=== PATIENT | male | born 1975 | race African-American/Black ===

== ENCOUNTER 2021-02-12 23:26 | Inpatient (IN) | payer OTHER, SELFPAY ==
[2021-02-13 00:20] VITALS: BMI 46.3
[2021-02-13] MEDS ORDERED: Acetaminophen 650 MG Suppository PR PRN (01:00)
[2021-02-13] MEDS ORDERED: Acetaminophen 325 MG TAB PO PRN (01:00)
[2021-02-13] MEDS ORDERED: Senokot S 8.6-50 MG TAB PO PRN (01:00)
[2021-02-13] MEDS ORDERED: Dextrose 5% in Water 1,000 ML IV PRN (01:01)
[2021-02-13] MEDS ORDERED: HumaLOG 300 UNITS/3 ML VIAL SC PRN ×2 (01:01)
[2021-02-13] MEDS ORDERED: Dextrose 50% Abboject 50 ML SYRINGE SLOW IVP PRN (01:01)
[2021-02-13] MEDS: traMADol HCl 50 MG TAB PO PRN ×3 (01:36→22:14)
[2021-02-13] MEDS ORDERED: VANCOMYCIN 1.25 GM/250 ML BAG 1.25 GM in Premix Bag 1 BAG IVPB SCH (03:00)
[2021-02-13 03:01] LABS: #Eosinphils 0.1 thou/uL (0.0-0.7); #Neutrophils 6.9 thou/uL (1.40-6.50); %Basophils 0.4 % (0.0-1.0); %Eosinophils 0.7 % (0.0-10.0); %Lymphocytes 20.2 % (21.0-51.0); %Monocytes 9.9 % (0.0-10.0); %Neutrophils 68.8 % (42.0-75.0); Hemoglobin 12.5 g/dL (14.0-18.0); Mean Corpuscular HGB CONC 32.6 g/dL (32.0-36.0); Mean Corpuscular Hemoglobin 30.4 pg (27.0-31.0); Mean Corpuscular Volume 93.4 fL (78.0-98.0); Mean Platelet Volume 6.9 fL (7.4-10.4); Platelet Count 291 thou/uL (130-400); RBC Distribution Width 12.8 % (11.5-14.5)
[2021-02-13 03:41] LABS: Lactic Acid 2.4 mmol/L (0.5-2.2)
[2021-02-13 03:46] LABS: Anion Gap 18 mmol/L (10-20); BUN (Urea Nitrogen) 15 mg/dL (8.9-20.6); Calc. Creatinine Clearance 183 mL/min (70-130); Calcium 9.4 mg/dL (7.8-10.44); Carbon Dioxide 23 mmol/L (22-29); Chloride 100 mmol/L (98-107); Glucose 180 mg/dL (70-105); Magnesium 1.8 mg/dL (1.6-2.6); Potassium 3.7 mmol/L (3.5-5.1); Sodium 137 mmol/L (136-145)
[2021-02-13] MEDS: Atorvastatin Calcium 20 MG TAB PO SCH (08:02)
[2021-02-13] MEDS: Metoprolol Tartrate 100 MG TAB PO SCH ×2 (08:02→20:28)
[2021-02-13] MEDS ORDERED: FLU VACC QS2020-21(6MOS UP)/PF 60 MCG/0.5 ML SYRINGE IM ONE (09:00)
[2021-02-13] MEDS ORDERED: Famotidine 20 MG TAB PO SCH (09:00)
[2021-02-13] MEDS ORDERED: Lidocaine 1% (PF) 30 ML VIAL ONE (11:25)
[2021-02-13] MEDS ORDERED: Lidocaine 1% (PF) 30 ML VIAL SC SCH (11:30)
[2021-02-13 13:19] LABS: Synovial Fluid, Protein 5.1 g/dL (Not Available); Synovial Fluid, Uric Acid 11.4 mg/dL (Not Available)
[2021-02-13 13:23] LABS: BF Color Yellow; Body Fluid Source Synovial Fluid; Clarity Cloudy/Turbid (Clear); RBC Count-Automated (BF) 2362 /cu.mm; Tube # EDTA; WBC/Nucleated-Auto (BF) 38040 uL
[2021-02-13 13:36] LABS: BF Segmented Neutrophils 57 %; Cell Count Non Hematic 43 %
[2021-02-13] MEDS: VANCOMYCIN 2 GRAM/400 ML BAG 2 GM in Premix Bag 1 BAG IVPB SCH (14:46)
[2021-02-13] MEDS: cefTRIAXone\\ROCEPHIN 1 GM in Sodium Chloride 0.9% 100 ML IVPB SCH (20:29)
[2021-02-14] MEDS: VANCOMYCIN 2 GRAM/400 ML BAG 2 GM in Premix Bag 1 BAG IVPB SCH ×2 (02:38→14:35)
[2021-02-14] MEDS: traMADol HCl 50 MG TAB PO PRN ×3 (06:06→14:31)
[2021-02-14] MEDS: Atorvastatin Calcium 20 MG TAB PO SCH (09:27)
[2021-02-14] MEDS: Metoprolol Tartrate 100 MG TAB PO SCH ×2 (09:27→20:45)
[2021-02-14 14:10] LABS: Vancomycin, Trough 10.6 ug/mL
[2021-02-14] MEDS ORDERED: Allopurinol 300 MG TAB PO SCH (16:30)
[2021-02-14] MEDS ORDERED: Ketorolac Tromethamine 30 MG/ML VIAL IVP SCH (20:15)
[2021-02-14] MEDS: cefTRIAXone\\ROCEPHIN 1 GM in Sodium Chloride 0.9% 100 ML IVPB SCH (20:45)
[2021-02-14] MEDS ORDERED: metFORMIN 500 MG TAB PO SCH (21:00)
[2021-02-14] MEDS ORDERED: Vancomycin 1.5 GRAM/300 ML BAG 1.5 GM in Premix Bag 1 BAG IVPB SCH (23:00)
[2021-02-15 05:55] LABS: #Eosinphils 0.2 thou/uL (0.0-0.7); #Lymphocytes 1.5 thou/uL (1.20-3.40); #Monocytes 0.8 thou/uL (0.11-0.59); #Neutrophils 6.3 thou/uL (1.40-6.50); %Basophils 0.4 % (0.0-1.0); %Lymphocytes 16.8 % (21.0-51.0); %Monocytes 9.4 % (0.0-10.0); %Neutrophils 71.4 % (42.0-75.0); Hemoglobin 12.8 g/dL (14.0-18.0); Mean Corpuscular HGB CONC 32.4 g/dL (32.0-36.0); Mean Corpuscular Hemoglobin 30.2 pg (27.0-31.0); Mean Corpuscular Volume 93.1 fL (78.0-98.0); Mean Platelet Volume 6.7 fL (7.4-10.4); Platelet Count 298 thou/uL (130-400); RBC Distribution Width 12.7 % (11.5-14.5); Red Blood Cell (RBC) Count 4.26 mill/uL (4.70-6.10); White Blood Cell (WBC) Count 8.9 thou/uL (4.8-10.8)
[2021-02-15 06:15] LABS: Anion Gap 12 mmol/L (10-20); BUN (Urea Nitrogen) 16 mg/dL (8.9-20.6); Calc. Creatinine Clearance 186 mL/min (70-130); Calcium 9.4 mg/dL (7.8-10.44); Carbon Dioxide 30 mmol/L (22-29); Chloride 98 mmol/L (98-107); Glucose 116 mg/dL (70-105); Sodium 136 mmol/L (136-145)
[2021-02-15] MEDS: Chlorthalidone 25 MG TAB PO SCH (09:48)
[2021-02-15] MEDS: Atorvastatin Calcium 20 MG TAB PO SCH (09:48)
[2021-02-15] MEDS: Allopurinol 300 MG TAB PO SCH (09:48)
[2021-02-15] MEDS: Metoprolol Tartrate 100 MG TAB PO SCH ×2 (09:48→19:47)
[2021-02-15] MEDS: Lisinopril 20 MG TAB PO SCH (09:48)
[2021-02-15] MEDS ORDERED: Morphine 4 MG/ML VIAL SLOW IVP PRN (09:58)
[2021-02-15] MEDS: traMADol HCl 50 MG TAB PO PRN (18:15)
[2021-02-15] MEDS: cefTRIAXone\\ROCEPHIN 1 GM in Sodium Chloride 0.9% 100 ML IVPB SCH (19:47)
[2021-02-16] MEDS: traMADol HCl 50 MG TAB PO PRN (05:28)
[2021-02-16] MEDS: Lisinopril 20 MG TAB PO SCH (08:20)
[2021-02-16] MEDS: Allopurinol 300 MG TAB PO SCH (08:20)
[2021-02-16] MEDS: Chlorthalidone 25 MG TAB PO SCH (08:20)
[2021-02-16] MEDS: Atorvastatin Calcium 20 MG TAB PO SCH (08:20)
[2021-02-16] MEDS: Metoprolol Tartrate 100 MG TAB PO SCH (08:20)
[2021-02-16 12:01] VITALS: BP 146/84; TEMP 97.5
== END 2021-02-16 16:14 | disposition home or self-care (01) | DRG 554 ==
LOC: INTOOBSV 02-13 00:12 → SURG A 02-13 00:12 → OBSVTOIN 02-14 16:16
PROVIDERS: ADMIT Student in an Organized Health Care Education/Training Program; ATTEND Hospitalist
PROC: 0S9C3ZZ Drainage of Right Knee Joint, Percutaneous Approach (ICD-10-PCS; principal; 2021-02-13)
DX: M10.061 Idiopathic gout, right knee (principal); Z68.42 Body mass index [BMI] 45.0-49.9, adult; M25.461 Effusion, right knee; Z20.822 Contact with and (suspected) exposure to COVID-19; I10 Essential (primary) hypertension; E66.9 Obesity, unspecified; E78.5 Hyperlipidemia, unspecified; E11.69 Type 2 diabetes mellitus with other specified complication; Z79.899 Other long term (current) drug therapy; Z79.84 Long term (current) use of oral hypoglycemic drugs
CPT/HCPCS: 36415; 36416; 80048; 80202; 82945; 83605; 83735; 84157; 84550; 84560; 85025; 85060; 85652; 86140; 87070; 87205; 89051; 89060; 93970; 96365; 96375; 96376; G0378; J0696; J1885; J2001; J2270; J3370; J3490

== ENCOUNTER 2021-04-17 18:00 | Outpatient (CLI) | payer OTHER | END 2021-04-17 18:01 | disposition home or self-care (01) | LOC: SLEEPLAB 18:00 | PROVIDERS: ATTEND Family Medicine | DX: G47.33 Obstructive sleep apnea (adult) (pediatric) (principal); R53.83 Other fatigue; E66.9 Obesity, unspecified; K21.9 Gastro-esophageal reflux disease without esophagitis; R06.83 Snoring; I10 Essential (primary) hypertension; E11.9 Type 2 diabetes mellitus without complications; G47.00 Insomnia, unspecified | CPT/HCPCS: 95806 ==

== ENCOUNTER 2021-07-26 08:54 | Outpatient (CLI) | payer OTHER | END 2021-07-26 08:55 | disposition home or self-care (01) | LOC: DTY/OP 08:54 | PROVIDERS: ATTEND Family Medicine | DX: E11.9 Type 2 diabetes mellitus without complications (principal); E66.01 Morbid (severe) obesity due to excess calories; I10 Essential (primary) hypertension; E78.5 Hyperlipidemia, unspecified | CPT/HCPCS: 97802 ==

== ENCOUNTER 2022-04-17 07:08 | Outpatient (CLI) | payer OTHER ==
[2022-04-17 21:41] LABS: SARS-CoV-2 PCR by NAA Not Detected (NotDetected)
== END 2022-04-17 07:09 | disposition home or self-care (01) ==
LOC: LABBT 07:08
PROVIDERS: ATTEND Internal Medicine
DX: Z12.11 Encounter for screening for malignant neoplasm of colon (principal); K21.9 Gastro-esophageal reflux disease without esophagitis; K92.0 Hematemesis; Z20.822 Contact with and (suspected) exposure to COVID-19
CPT/HCPCS: U0003; U0005